=== PATIENT | female | born 1965 | race Native Hawaiian/Other Pacific Islander ===

== ENCOUNTER 2018-01-22 11:40 | Outpatient (CLI) | payer OTHER | END 2018-01-22 21:30 | disposition home or self-care (01) | LOC: RAD 11:40 | DX: R07.81 Pleurodynia (principal) ==

== ENCOUNTER 2019-07-19 12:43 | Emergency (ER) | payer OTHER ==
[~2019-07-19] VITALS: Ht 160 cm; Wt 57.6 kg
[2019-07-19 12:53] VITALS: TEMP 98.2
[2019-07-19 13:43] LABS: PLATELET COUNT 301 K/uL (152-353)
[2019-07-19 13:49] LABS: POTASSIUM 3.9 mmol/L (3.6-5.2)
[2019-07-19 14:05] LABS: PARTIAL THROMBOPLASTIN TIME 23.1 SECONDS (24.5-33.6)
[2019-07-19 16:30] VITALS: BP 127/71
== END 2019-07-19 16:50 | disposition home or self-care (01) ==
LOC: ED 12:43
PROVIDERS: Hospitalist
DX: R10.84 Generalized abdominal pain (principal); K59.09 Other constipation
CPT/HCPCS: 36415; 80053; 81000; 81025; 82150; 83690; 85027; 85610; 85730; 96360; 96361; 96375; 99284; J1885; J2405; Q9963

== ENCOUNTER 2019-08-12 08:32 | Outpatient (CLI) | payer OTHER | END 2019-08-12 22:25 | disposition home or self-care (01) | LOC: NM 08:32 | DX: R14.0 Abdominal distension (gaseous) (principal); R11.0 Nausea | CPT/HCPCS: A9537 ==

== ENCOUNTER 2019-09-21 08:52 | Outpatient (CLI) | payer OTHER | END 2019-09-21 22:31 | disposition home or self-care (01) | LOC: MAMMO 08:52 | DX: Z12.31 Encounter for screening mammogram for malignant neoplasm of breast (principal) ==

== ENCOUNTER 2021-01-01 12:19 | Emergency (ER) | payer OTHER ==
[~2021-01-01] VITALS: Ht 160 cm; Wt 57.6 kg
[2021-01-01 12:30] VITALS: TEMP 98.1
[2021-01-01 13:25] LABS: PLATELET COUNT 283 K/uL (152-353)
[2021-01-01 14:10] VITALS: BP 133/74
== END 2021-01-01 14:10 | disposition home or self-care (01) ==
LOC: ED 12:19
PROVIDERS: Emergency Medicine Emergency Medical Services
DX: R42 Dizziness and giddiness (principal); Z03.818 Encounter for observation for suspected exposure to other biological agents ruled out
CPT/HCPCS: 80053; 81000; 84443; 85027; 87635; 96360; 99284; U0003

== ENCOUNTER 2022-02-16 12:51 | Outpatient (CLI) | payer OTHER | END 2022-02-16 19:23 | disposition home or self-care (01) | LOC: MAMMO 12:51 | PROVIDERS: ATTEND Nurse Practitioner Family | DX: Z12.31 Encounter for screening mammogram for malignant neoplasm of breast (principal) ==

== ENCOUNTER 2023-03-13 08:15 | Outpatient (CLI) | payer OTHER | END 2023-03-13 20:06 | disposition home or self-care (01) | LOC: US 08:15 | PROVIDERS: ATTEND Nurse Practitioner Family | DX: R10.84 Generalized abdominal pain (principal) ==